=== PATIENT | male | born 1990 | race Caucasian/White ===

== ENCOUNTER 2017-05-31 13:22 | Emergency (ER) | payer OTHER ==
[~2017-05-31] VITALS: Ht 172.7 cm; Wt 81.6 kg
--- NOTE | 2017-05-31 13:28 | ER Report ---
History and Physical Time Seen By MD: 13:27 HPI/ROS CHIEF COMPLAINT: Right shoulder pain HISTORY OF PRESENT ILLNESS: 26-year-old male patient presents to emergency room with complaint of right shoulder pain. Patient states that he was snowboarding for the first time and fell onto his right shoulder. Patient states he believes that he has broken his clavicle. He denies having any numbness or tingling to the fingers, he states he has pain with any type of movement of the shoulder. Patient states he is not taking any medication. I did [place] him [place] He denies any head injury, dizziness, nausea, vomiting. REVIEW OF SYSTEMS: Respiratory: No cough, no dyspnea. Cardiovascular: No chest pain, no palpitations. Gastrointestinal: No vomiting, no abdominal pain. Musculoskeletal: As noted above. Allergies: Coded Allergies: No Known Drug Allergies (Unverified , 05/31/17) Home Meds Active Scripts Oxycodone Hcl/Acetaminophen (PERCOCET 5-325 MG TABLET) 1 Each Tablet, 1 EACH PO Q4-6H Y for PAIN, #20 TAB Prov:HORACIO STEELE 05/31/17 Past Medical/Surgical History Patient has no pertinent medical history. Patient has surgical history of wisdom teeth removed. Reviewed Nurses Notes: Yes Constitutional Vital Sign - Last 24 Hours 05/31/17 05/31/17 05/31/17 05/31/17 13:32 13:37 13:52 14:00 Temp 98.4 Pulse 84 81 Resp 18 B/P (MAP) 124/92 124/92 (103) 119/77 (91) Pulse Ox 93 93 O2 Delivery Room Air 05/31/17 05/31/17 14:22 14:30 Pulse 85 B/P (MAP) 120/81 (94) Pulse Ox 93 Physical Exam General Appearance: The patient is alert, has no immediate need for airway protection and no current signs of toxicity. Respiratory: Chest is non tender, lungs are clear to auscultation. Cardiac: regular rate and rhythm Gastrointestinal: Abdomen is soft and non tender, no masses, bowel sounds normal. Musculoskeletal: Neck: Neck is supple and non tender. Extremities have full range of motion and are non tender. Patient has tenderness deformity to the right clavicle. Patient is able to move fingers any difficulties. Skin: No rashes or lesions. DIFFERENTIAL DIAGNOSIS: After history and physical exam differential diagnosis was considered for clavicle fracture, contusion, shoulder dislocation. Medical Decision Making EKG/Imaging Imaging EXAMINATION: Right clavicle radiographs 2 views HISTORY: Fall with pain, snowboarding. COMPARISON: None. FINDINGS: AP and AP angled views of the right clavicle are obtained. Bones: There is an acute, mildly comminuted fracture of the mid clavicle. Joint spaces: Negative. Hardware: None. Alignment: 1 shaft width inferior displacement of the distal fragment, and 2 cm overlapping of the main fracture fragments. Soft tissues/visualized lungs: Negative. IMPRESSION: Acute, mildly comminuted fracture of the right mid clavicle with one shaft width inferior displacement and 2 cm overlapping of the fracture fragments. Report Dictated By: Chelly Armijo MD at 05/31/2017 2:14 PM Report E-Signed By: Chelly Armijo MD at 05/31/2017 2:15 PM ED Course/Re-evaluation ED Course Patient was admitted and examined, history and physical were obtained. Differential diagnoses were considered. On examination patient has obvious fracture of the clavicle. X-ray was done which confirmed that. Patient was placed in a shoulder immobilizer. Patient was given a Lortab here. On reexamination patient states he had some improvement in his pain. We did adjust a sling which seem to help. Patient be discharged home. He is to follow-up with orthopedics on Friday. He is to call to make an appointment. He is to ice the shoulder. He is to wear the sling 23/24 hours a day. He may take a shower. Patient was given a prescription of Percocet to help with the pain. I discussed this with the patient who verbalized understanding and agreement with plan. Decision to Disposition Date: May 31, 2017 Decision to Disposition Time: 14:19 Depart Departure Latest Vital Signs Vital Signs Date Time Temp Pulse Resp B/P (MAP) Pulse Ox O2 Delivery O2 Flow Rate FiO2 05/31/17 14:30 120/81 (94) 05/31/17 14:22 85 93 05/31/17 13:32 98.4 18 Room Air Impression: Primary Impression: Clavicle fracture, shaft Condition: Improved Disposition: HOME OR SELF-CARE New Scripts Oxycodone Hcl/Acetaminophen (PERCOCET 5-325 MG TABLET) 1 Each Tablet 1 EACH PO Q4-6H Y for PAIN, #20 TAB Prov: HOARCIO STEELE 05/31/17 Patient Instructions: Clavicle Fracture (ED) Additional Instructions: Limit activity by pain. Ice the shoulder 2-3 times a day for 20-30 minutes. Wear sling 23 out of 24 hours a day, may take a shower. Follow up with orthopedics, call Friday to make an appointment. You may take Ibuprofen as needed for pain in addition to the pain medication. Don't take any additional Tylenol while on the pain medication. Problem Qualifiers Primary Impression: Clavicle fracture, shaft Encounter type: initial encounter Fracture type: closed Fracture alignment : displaced Laterality: left Qualified Codes: S42.022A - Displaced fracture of shaft of left clavicle, initial encounter for closed fracture HORACIO STEELE May 31, 2017 13:28
[2017-05-31] MEDS ORDERED: APAP/HYDROCODONE 325/5 TAB PO ONE (13:35)
--- NOTE | 2017-05-31 14:19 | RADIOLOGY IMAGING REPORT ---
FACILITY: [facility] - [place] PATIENT NAME: Greyson Putnam : 1990 MR: [id number] V: [id number] EXAM DATE: ORDERING PHYSICIAN: HORACIO STEELE TECHNOLOGIST: Location: [facility] Patient: Greyson Putnam : 1990 Visit/Account:[id number] Date of Sevice: 05/31/2017 EXAMINATION: Right clavicle radiographs 2 views HISTORY: Fall with pain, snowboarding. COMPARISON: None. FINDINGS: AP and AP angled views of the right clavicle are obtained. Bones: There is an acute, mildly comminuted fracture of the mid clavicle. Joint spaces: Negative. Hardware: None. Alignment: 1 shaft width inferior displacement of the distal fragment, and 2 cm overlapping of the m ain fracture fragments. Soft tissues/visualized lungs: Negative. IMPRESSION: Acute, mildly comminuted fracture of the right mid clavicle with one shaft width inferior displacemen t and 2 cm overlapping of the fracture fragments. Report Dictated By: Chelly Armijo MD at 05/31/2017 2:14 PM Report E-Signed By: Chlely Armijo MD at 05/31/2017 2:15 PM WSN:[id number]
[2017-05-31] MEDS ORDERED: OXYC-865 PO (14:20)
[2017-05-31 14:30] VITALS: BP 120/81
== END 2017-05-31 14:41 | disposition home or self-care (01) ==
LOC: ER 14:24
DX: S42.022A Displaced fracture of shaft of left clavicle, initial encounter for closed fracture (principal); V00.311A Fall from snowboard, initial encounter; Y93.23 Activity, snow (alpine) (downhill) skiing, snowboarding, sledding, tobogganing and snow tubing
CPT/HCPCS: 73000; 99282; L3982